=== PATIENT | male | born 1935 | race Caucasian/White ===

== ENCOUNTER 2024-05-05 08:34 | Emergency (ER) | payer MEDICARE, SELFPAY ==
[2024-05-05 08:36] VITALS: BP 132/65; PULSE 67; RESP 20; TEMP 36.6; O2SAT 96
--- NOTE | 2024-05-05 08:36 | ED.EAR ---
HPI - Ear Problem General Chief complaint: Ear Stated complaint: Right Ear Irritation Time Seen by Provider: 05/05/24 08:48 Source: patient, RN notes reviewed and old records reviewed Mode of arrival: ambulatory Limitations: no limitations History of Present Illness HPI Narrative: 88-year-old male presents to the [facility] with very intermittent 2nd ?sharp pains? to his right ear that started on Wednesday. Patient states at random times he gets a just a sharp pain coming from the right ear. States that he called primary care provider was told to go to the urgent care for an evaluation. Denies any fevers. Denies any cold symptoms. Denies any headaches or change in hearing. Location: right ear Treatment prior to arrival: none Related Data Home Medications Medication Instructions Recorded Confirmed allopurinol 100 mg tablet 100 mg PO DAILY 05/05/24 05/05/24 diclofenac sodium 0.1 % eye drops 1 drp ophthalmic (eye) DIRECTED 05/05/24 05/05/24 ezetimibe 10 mg tablet 10 mg PO DIRECTED 05/05/24 05/05/24 finasteride 5 mg tablet 5 mg PO DAILY 05/05/24 05/05/24 furosemide 80 mg tablet 80 mg PO DAILY 05/05/24 05/05/24 ketoconazole 2 % topical cream 1 applic topical DIRECTED 05/05/24 05/05/24 losartan 50 mg tablet 50 mg PO DAILY 05/05/24 05/05/24 metoprolol succinate 50 mg 50 mg PO DAILY 05/05/24 05/05/24 tablet,extended release 24 hr potassium chloride 20 mEq 20 meq PO DIRECTED 05/05/24 05/05/24 tablet,extended release rosuvastatin 5 mg tablet 5 mg PO DAILY 05/05/24 05/05/24 warfarin 3 mg tablet 3 mg PO DIRECTED 05/05/24 05/05/24 Allergies Allergy/AdvReac Type Severity Reaction Status Date / Time levofloxacin Allergy Mild RASH Verified 05/05/24 08:46 hydrocodone Allergy Unknown Other Verified 05/05/24 08:46 Sulfa (Sulfonamide Allergy Unknown Other Verified 05/05/24 08:46 Antibiotics) Contrast Media Allergy Mild Other Uncoded 05/05/24 08:46 Steroid for eye Allergy Unknown Other Uncoded 05/05/24 08:46 Review of Systems Review of Systems: All systems reviewed & are unremarkable except as noted in HPI and below Constitutional: Constitutional: Reports no additional constitutional complaints Eyes: Eyes: Reports no additional eye complaints ENT: Reports as per HPI and Reports otalgia (Right) Cardiovascular: Cardiovascular: Reports no additional cardiovascular complaints, Denies chest pain and Denies dyspnea Respiratory: Respiratory: Reports no additional respiratory complaints, Denies chest congestion, Denies cough and Denies dyspnea Gastrointestinal: Gastrointestinal: Reports no additional gastrointestinal complaints, Denies abdominal pain, Denies nausea and Denies vomiting Musculoskeletal: Musculoskeletal: Reports no additional musculoskeletal complaints Integumentary/Breasts: Skin/Breast: Reports system reviewed and no additional complaints, except as docu Neurologic: Reports system reviewed and no additional complaints, except as documented Psychiatric: Psychiatric: Reports no additional psychiatric complaints Allergic/Immunologic: Allergic/Immunologic: Reports no additional allergic/immunologic complaints PMFSH Past Medical History Medical History (Updated 05/05/24 @ 09:00 by Joselyn Shea APRN) Afib CHF (congestive heart failure) High cholesterol History of BPH History of deep venous thrombosis (DVT) of distal vein of left lower extremity History of gout Hypertension Surgical History Surgical History (Updated 05/05/24 @ 08:58 by Joselyn Shea APRN) History of bilateral knee replacement Hx of cholecystectomy Comments At the time of my signature, I reviewed and agree with the nursing past medical, surgical, social, and family history. There is no relevant family history pertinent to the patient complaint. Exam Const: General: cooperative, comfortable, no acute distress, well developed, alert, ill appearing chronically and well nourished Nutritional Appearance: well nourished O
== END 2024-05-05 09:05 | disposition home or self-care (01) ==
PROVIDERS: Emergency Provider Nurse Practitioner; PCP Physician Assistant Medical
DX: H92.01 Otalgia, right ear (principal); I48.91 Unspecified atrial fibrillation; I11.0 Hypertensive heart disease with heart failure; I50.9 Heart failure, unspecified; E78.00 Pure hypercholesterolemia, unspecified; N40.0 Benign prostatic hyperplasia without lower urinary tract symptoms; Z86.718 Personal history of other venous thrombosis and embolism; Z96.653 Presence of artificial knee joint, bilateral
CPT/HCPCS: 99211; G0463